=== PATIENT | female | born 1935 | race African-American/Black ===

== ENCOUNTER → 2023-06-21 | Emergency (ER) | payer OTHER ==
[~2023-06-21] VITALS: Ht 170.2 cm; Wt 90.7 kg
[2023-06-21 22:15] LABS: HEMATOCRIT 37.9 % (36.0-45.00); HEMOGLOBIN 12.9 g/dL (12.0-15.00); MEAN CELL VOLUME 97.3 fL (80.00-100.00); MEAN CORPUSCULAR HEMOGLOBIN 33.1 pg (27.00-32.0); PLATELET COUNT 141 K/uL (150-450); RED CELL DISTRIBUTION WIDTH 13.4 % (11.5-14.5)
[2023-06-21 22:35] LABS: CALCIUM 9.5 mg/dL (8.5-10.1); CREATININE SERUM 1.02 mg/dL (0.55-1.02); GFR 51.14; POTASSIUM 4.14 mEq/L (3.5-5.1)
== END | disposition home or self-care (01) ==
LOC: ER 19:44
PROVIDERS: General Practice
DX: S01.82XA Laceration with foreign body of other part of head, initial encounter (principal); W18.39XA Other fall on same level, initial encounter; Y93.F1 Activity, caregiving, bathing; Y92.012 Bathroom of single-family (private) house as the place of occurrence of the external cause; Z20.822 Contact with and (suspected) exposure to COVID-19; M48.52XA Collapsed vertebra, not elsewhere classified, cervical region, initial encounter for fracture
CPT/HCPCS: 12011; 70450; 71045; 72020 ×2; 72125; 72170; 76380; 90471; 90714; 93005; 96372; 99284; J2001